=== PATIENT | female | born 1960 | race Caucasian/White ===

== ENCOUNTER 2023-12-31 13:40 | Outpatient (CLI) | payer MEDICARE, SELFPAY ==
--- NOTE | ~2023-12-31 | MM_ITS ---
EXAMINATION: MM screening sheldon BI w beto HISTORY: Screening TECHNIQUE: Craniocaudal and mediolateral oblique 3-D tomosynthesis images were obtained and synthetic 2-D images were generated. CAD analysis was submitted and interpreted. COMPARISON: 10/17/2017 BREAST PARENCHYMAL COMPOSITION: Not Dense: The breasts are almost entirely fatty. FINDINGS: There is no evidence of suspicious mass, calcification, or architectural distortion to sugg est malignancy in either breast. There has been no suspicious interval change. IMPRESSION: 1. No mammographic evidence of malignancy. 2. Recommend routine screening mammography in one year. BI-RADS Category 1: Negative Reviewed, dictated and finalized at location B.
--- NOTE | ~2023-12-31 | DEXA_ITS ---
Bone Density Report Name: BRUCE WAY Age: 63 Sex: Female Ethnicity: White Date of : 1960 Indication: postmenopausal; screening for osteoporosis; height loss; Referring Provider: JF MORE Study: Bone densitometry was performed. Exam Date: December 31, 2023 Accession number: [id number] Bone Density: Region BMD T-score Z-score Classification AP Spine(L1, L2, L3) 0.874 -1.3 0.4 Osteopenia Femoral Neck (Left) 0.682 -1.5 0.0 Osteopenia Total Hip (Left) 0.895 -0.4 0.8 Normal Femoral Neck (Right) 0.718 -1.2 0.3 Osteopenia Total Hip (Right) 0.906 -0.3 0.9 Normal Femoral Neck Mean 0.700 -1.3 0.2 Osteopenia Total Hip Mean 0.901 -0.3 0.9 Normal World Health Organization criteria for BMD impression classify patients as: Normal (T-score at or above -1.0), Osteopenia (T-score between -1.0 and -2.5), or Osteoporosis (T-score at or below -2.5). 10-year Fracture Risk(1): Major Osteoporotic Fracture 9.0% Hip Fracture 1.6% Reported Risk Factors: [place] (), Neck BMD=0.682, BMI=27.6, smoking (1) FRAX(R) Version 3.08. Fracture probability calculated for an untreated patient. Fracture probability may be lower if the patient has received treatment. Clinical Information Provided by Patient: Smokes Patient maximum height was 65 Menopause Age: 48 No regular weight bearing exercise Does not regularly consume dairy products Drinks caffeinated beverages Onset of menses at age 11 Number of children 2 Impression: The patient has low bone mass, based on the Left Femoral Neck T-score. The patient has risk factors, including: smoking. Discussion: BONE DENSITY IS LOW AT ONE OR MORE SKELETAL SITES. This patient's lowest T-score is low at one or more skeletal sites. It meets the World Health Organization's (WHO) criteria for ?low bone mass? (T-score between -1.0 and -2.5). The patient's 10-year risk of fracture as calculated by FRAX is less than the threshold where pharmacological therapy is recommended by the National Osteoporosis Foundation (NOF). However, all treatment decisions require clinical judgment and consideration of individual patient factors, including patient preferences, comorbidities, previous drug use, risk factors not captured in the FRAX model (e.g., frailty, falls, vitamin D deficiency, increased bone turnover, interval significant decline in bone density) and possible under or overestimation of fracture risk by FRAX. The patient should follow a healthful lifestyle (good nutrition with adequate calcium and vitamin D, and appropriate weight-bearing exercise). Follow-Up: Consider repeating this study in 2 to 3 years to reassess this patient's status, or sooner if there is some new clinical indication. Reported by: ADIS on 12/31/2023 2:20
== END 2023-12-31 13:41 | disposition home or self-care (01) ==
PROVIDERS: PCP Family Medicine; Visit Provider Student in an Organized Health Care Education/Training Program
DX: Z12.31 Encounter for screening mammogram for malignant neoplasm of breast (principal); Z78.0 Asymptomatic menopausal state; M85.89 Other specified disorders of bone density and structure, multiple sites
CPT/HCPCS: 77063; 77067; 77080

== ENCOUNTER 2024-02-26 06:27 | Day surgery (SDC) | payer MEDICARE, SELFPAY ==
[2023-12-13 10:48] VITALS: BMI 26.4
--- NOTE | 2024-02-26 06:52 | WPDANESEPPF ---
Anes - Initial Pre Proc Eval Procedure: Operation Date: 02/26/24 08:30 Proposed Procedures p Diagnostic Colonoscopy - Dano Hayes MD Date/Time: 02/26/24 06:52 Surgeon: Dano Hayes MD Pre Op Diagnosis: Personal HX of Colonic Polyps Patient Data Age: 63 Gender: F Height: 1.68 m Weight: 75 kg Allergies Allergy/AdvReac Type Severity Reaction Status Date / Time No Known Allergies Allergy Unknown Verified 02/26/24 06:55 Home Medications Medication Instructions Recorded Confirmed Type aspirin 81 mg tablet,delayed 81 mg PO DAILY 09/20/21 02/26/24 History release (Adult Aspirin Regimen) montelukast 10 mg tablet 10 mg PO DAILY #90 tabs 12/02/23 02/26/24 Rx trazodone 50 mg tablet 50 mg PO .at night #30 tabs 12/02/23 02/26/24 Rx lorazepam 0.5 mg tablet See Rx Instructions PO TID PRN 02/17/24 02/26/24 Rx anxiety #90 tabs Patient hx anesthesia problems: none Family hx anesthesia problems: none Results Review: All pre-operative results and documents have been reviewed as part of the pre-operative evaluation. [facility] Past Medical History Medical History Acute thoracic back pain AK (actinic keratosis) Anxiety Anxiety Atypical chest pain Current moderate episode of major depressive disorder Elevated liver enzymes HLD (hyperlipidemia) Lower respiratory tract infection Major depressive disorder in full remission Post-menopausal Screening mammogram, encounter for Seasonal allergic rhinitis Tobacco abuse URI, acute Weight gain Well woman exam Surgical History Surgical History History of bilateral tubal ligation History of carpal tunnel repair Family History Family History Mother Family history of arthritis Father Family history of lung cancer Family history of coronary artery disease Other Cerebrovascular accident Family history of malignant neoplasm Social History Social History (Updated 12/05/22 @ 09:14 by Shira Guaman MA) Smoking packs per day: 1 Smoking cigarettes per day: 20.0 Years smoked: 45 Smoking pack-years: 45.00 Smoking status: Current every day smoker Tobacco type: cigarettes Second hand tobacco smoke exposure: Yes Alcohol intake: never Substance use: never Substance use type: does not use Lack of Transportation: No Lack of Food: Never True Current Housing: I Have Housing Concerned About Future Housing: No Difficulty Paying Gas/Electric Bills: No Difficulty Paying for Meds: No Currently Unemployed: No Education: High School Diploma/GED Difficulty w/ Childcare or Family Care: No Living arrangements: with family Spiritual care concerns: No Agree to blood products: Yes Anes - Eval Final PreProcedure Day of Procedure 02/26/24 06:52 Patient weight: overweight Heart: regular rate and rhythm Lungs: clear to auscultation Airway: Mallampati scale class II Neurological: alert and oriented Last oral intake: >/= 8 hours ASA classification: III Emergent: no Anesthetic plan: proceed Anesthesia type and monitoring: general GIVS and standard monitoring Results Review: All pre-operative results and documents have been reviewed as part of the pre-operative evaluation. Informed Consent: The patient's anesthetic plan and its attendant risks and benefits were discussed with the patient/family/POA. Questions were solicited and answers provided to the satisfaction of the patient/family/POA.
[2024-02-26 07:04] VITALS: BP 107/69; PULSE 86; RESP 20; TEMP 37; O2SAT 95; BMI 26.3
--- NOTE | 2024-02-26 07:22 | PM.HPGS ---
History of Present Illness History of Present Illness Consent: Risks, benefits, and alternatives have been discussed and questions answered. Patient agrees to proceed with procedure. Chief complaint: Personal HX of Colonic Polyps Narrative: María Song is a 63 year old female presents for screening colonoscopy. Patient does have a history of a sessile serrated adenoma removed in the colon at prior colonoscopy in 2018. Her family history is significant that her sister had colon cancer. Patient reports that her own weight appetite and bowel movements are normal. Patient denies abdominal pain. She has had no bleeding. Review of Systems Review of Systems: All systems reviewed & are unremarkable except as noted in HPI and below PMFSH Past Medical History Medical History Acute thoracic back pain AK (actinic keratosis) Anxiety Anxiety Atypical chest pain Current moderate episode of major depressive disorder Elevated liver enzymes HLD (hyperlipidemia) Lower respiratory tract infection Major depressive disorder in full remission Post-menopausal Screening mammogram, encounter for Seasonal allergic rhinitis Tobacco abuse URI, acute Weight gain Well woman exam Surgical History Surgical History History of bilateral tubal ligation History of carpal tunnel repair Family History Family History Mother Family history of arthritis Father Family history of lung cancer Family history of coronary artery disease Other Cerebrovascular accident Family history of malignant neoplasm Social History Social History (Updated 12/05/22 @ 09:14 by Shira Guaman MA) Smoking packs per day: 1 Smoking cigarettes per day: 20.0 Years smoked: 45 Smoking pack-years: 45.00 Smoking status: Current every day smoker Tobacco type: cigarettes Second hand tobacco smoke exposure: Yes Alcohol intake: never Substance use: never Substance use type: does not use Lack of Transportation: No Lack of Food: Never True Current Housing: I Have Housing Concerned About Future Housing: No Difficulty Paying Gas/Electric Bills: No Difficulty Paying for Meds: No Currently Unemployed: No Education: High School Diploma/GED Difficulty w/ Childcare or Family Care: No Living arrangements: with family Spiritual care concerns: No Agree to blood products: Yes Meds Home Medications and Allergies Home Medications Medication Instructions Recorded Confirmed Type aspirin 81 mg tablet,delayed 81 mg PO DAILY 09/20/21 02/26/24 History release (Adult Aspirin Regimen) montelukast 10 mg tablet 10 mg PO DAILY #90 tabs 12/02/23 02/26/24 Rx trazodone 50 mg tablet 50 mg PO .at night #30 tabs 12/02/23 02/26/24 Rx lorazepam 0.5 mg tablet See Rx Instructions PO TID PRN 02/17/24 02/26/24 Rx anxiety #90 tabs Allergies Allergy/AdvReac Type Severity Reaction Status Date / Time No Known Allergies Allergy Unknown Verified 02/26/24 06:55 Vital Signs Vital Signs - 24 hr 02/26/24 07:04 Temperature 98.6 F Pulse Rate 86 Respiratory Rate 20 Blood Pressure 107/69 Pulse Oximetry 95 Oxygen Delivery Room Air Exam Narrative: Physical exam reveals patient signs stable. HEENT exam is unremarkable. Patient is anicteric. Lungs are clear to auscultation and to percussion. Heart is without murmur or extra sounds. Abdomen bowel sounds are present soft nontender with no organomegaly. Digital external rectal exam is normal. Assessment and Plan Assessment and plan (1) History of colon polyps: Code(s): Z86.0100 - Personal history of colon polyps, unspecified Status: Acute Assessment and Plan: Patient has a history of sessile serrated adenoma removed from the colon 2017. Plan for follow-up colonoscopies at 5 year intervals. (2) Family hx of colon cancer: Code(s): Z80.0 - Family history of malignant neoplasm of digestive organs Status: Acute Assessment and Plan: Patient's sister had colon cancer resected for cure. Follow-up colonoscopy is recommended at Five year intervals.
[2024-02-26] MEDS: LACTATED RINGERS 1,000 ML 150 ML IV CONT (07:23)
[2024-02-26 09:09] VITALS: BP 94/59; PULSE 70; RESP 18; O2SAT 97
[2024-02-26 09:19] VITALS: BP 103/67; PULSE 70; RESP 18; O2SAT 99
[2024-02-26 09:29] VITALS: BP 112/69; PULSE 72; RESP 15; O2SAT 100
--- NOTE | 2024-02-26 12:46 | WPDANESPN ---
Anes - Prog Note Post-Op Date/Time: 02/26/24 12:46 Cardiovascular status: normal Respiratory status: normal Airway patency: baseline Mental status: baseline Post-Op hydration status: normal Vital Signs: Last Vital Signs Temp 37.0 C 02/26/24 07:04 Pulse 72 02/26/24 09:29 Resp 15 02/26/24 09:29 BP 112/69 02/26/24 09:29 Pulse Ox 100 02/26/24 09:29 O2 Del Method Room Air 02/26/24 09:29 Pain Score (VAS): 0 I/O: Intake & Output 02/25/24 02/26/24 02/26/24 23:59 07:59 15:59 Intake Total 900 Balance 900 Post-procedural complaints: none Patient Feedback: Patient satisfied with anesthetic care. Other Findings: Patient vital signs back to baseline. Patient denies nausea and vomiting. Patient's pain under control. Patient OK for discharge.
== END 2024-02-26 09:39 | disposition home or self-care (01) ==
PROVIDERS: PCP Family Medicine; Visit Provider Internal Medicine Gastroenterology
PROC: 0DJD8ZZ Inspection of Lower Intestinal Tract, Via Natural or Artificial Opening Endoscopic (ICD-10-PCS; CPT 45378; principal; 2024-02-26 08:30)
DX: Z86.0100 Personal history of colon polyps, unspecified (principal); D12.5 Benign neoplasm of sigmoid colon; K57.30 Diverticulosis of large intestine without perforation or abscess without bleeding
CPT/HCPCS: 45385

== ENCOUNTER 2024-02-26 07:42 | Outpatient (NON) | payer MEDICARE, SELFPAY | END 2024-02-26 07:43 | disposition home or self-care (01) | PROVIDERS: PCP Family Medicine; Visit Provider Internal Medicine Gastroenterology | DX: K63.5 Polyp of colon (principal) | CPT/HCPCS: 88305 ==